=== PATIENT | male | born 1970 | race Caucasian/White ===

== ENCOUNTER 2021-02-13 10:33 | Outpatient (REF) | payer OTHER, SELFPAY ==
[2021-02-13 12:06] LABS: Hemoglobin 9.4 g/dl (14.0-18.0)
[2021-02-13 12:08] LABS: Basophils Percent Auto 0.6 % (0-2); Eosinophils Absolute Auto 0.2 X10*3/uL (0.0-0.4); Eosinophils Percent Auto 2.6 % (0-4); Hematocrit 33.9 % (42-52); Imm Gran Abs Auto 0.03 X10*3/uL (0.00-0.03); Imm Gran Pct Auto 0.4 % (0.0-0.4); Lymphocytes Absolute Auto 1.6 X10*3/uL (1.2-4.9); Lymphocytes Percent Auto 21.7 % (20-40); Mean Corpuscular HGB Conc 27.7 g/dl (31.0-36.0); Mean Corpuscular Hemoglobin 18.6 pg (27.0-33.0); Mean Corpuscular Volume 67.1 fL (80-98); Mean Platelet Volume 10.9 fL (9.4-12.4); Monocytes Absolute Auto 0.7 X10*3/uL (0.1-1.2); Monocytes Percent Auto 9.6 % (2-11); Neutrophils Absolute Auto 4.7 X10*3/uL (2.0-8.3); Neutrophils Percent Auto 65.1 % (45-73); Platelet Count 308 X10*3/uL (160-400); Red Blood Count 5.05 X10*6/uL (4.60-5.80); Red Cell Distribution Width 19.6 % (11.0-16.0); White Blood Count 7.2 X10*3/uL (4.8-10.8)
[2021-02-13 12:37] LABS: Alanine Aminotransferase 13 U/L (0-40); Albumin Level 4.2 g/dL (3.5-5.0); Alkaline Phosphatase 111 U/L (39-117); Aspartate Amino Transferase 16 U/L (5-37); Bilirubin Direct 0.3 mg/dL (0.0-0.5); Bilirubin Total 0.7 mg/dL (0.0-1.0); C Reactive Protein 0.59 mg/dL (< or = 0.50); Iron 22 mcg/dL (45-160); Percent Iron Saturation 5 % (15-50); Total Iron Binding Capacity 411 mcg/dL (228-428); Total Protein 7.2 g/dL (6.5-8.0); Unsaturated Iron Binding 389 ug/dL
[2021-02-13 13:09] LABS: Folate 5.6 ng/mL (> or = 4.0); Vitamin B12 274 pg/mL (200-900)
[2021-02-13 13:12] LABS: Erythrocyte Sedimentation Rate 10 MM/HR (0-15)
[2021-02-13 14:05] LABS: Ferritin < 1 ng/mL (20-250)
== END 2021-02-13 10:34 | disposition home or self-care (01) ==
LOC: HO.LAB 10:33
PROVIDERS: PCP Internal Medicine; Visit Provider Internal Medicine
DX: D50.9 Iron deficiency anemia, unspecified (principal); K50.019 Crohn's disease of small intestine with unspecified complications
CPT/HCPCS: 36415; 80076; 82607; 82728; 82746; 83540; 85025; 85652; 86140

== ENCOUNTER 2021-02-20 09:28 | Day surgery (SDC) | payer OTHER, SELFPAY ==
[2021-02-14 11:15] VITALS: BMI 39.0
[2021-02-20 10:09] VITALS: BP 119/63; PULSE 59; RESP 16; TEMP 36.8; O2SAT 97; BMI 39.2
[2021-02-20] MEDS: Lactated Ringers 1,000 ML 50 ML IV (10:12)
--- NOTE | 2021-02-20 10:26 | HO.ANESPROP2 ---
[facility] Past Medical History Medical History (Updated 02/14/21 @ 11:08 by Ayala Jacobs) Hx of Crohn's disease Surgical History Surgical History (Updated 02/14/21 @ 11:11 by Ayala Jacobs) H/O colonoscopy History of esophagogastroduodenoscopy (EGD) Hx of resection of small bowel Social History Social History Smoking Status: Never smoker Advance Directives Information Provided: No Meds Allergies Allergy/AdvReac Type Severity Reaction Status Date / Time Penicillins Allergy Severe ANAPHYLAXIS Verified 02/14/21 11:17 Active Medications: Current Medications Generic Name Dose Route Start Last Admin Trade Name Freq PRN Reason Stop Dose Admin Lactated Ringer's 1,000 mls @ 50 mls/hr 02/20/21 07:30 02/20/21 10:12 Lr IV 50 mls/hr .Q20H [place] Administration Sodium Biphosphate/Sodium Phosphate 133 ml 02/20/21 06:05 Sodium Phosphate,[place]-Dibasic 133 Ml Enema OR ONCE PRN Poor Colonoscopy Prep Results Home Medications Medication Instructions Recorded Confirmed Last Taken Type No Known Home Meds 02/14/21 02/14/21 Unknown History Exam Exam Date and Time: February 20, 2021 1026 Height,Weight and Vital Signs: Height 5 ft 7.5 in Weight 115.212 kg Last Vital Signs Temp 98.3 F 02/20/21 10:09 Pulse 59 02/20/21 10:09 Resp 16 02/20/21 10:09 BP 119/63 02/20/21 10:09 Pulse Ox 97 02/20/21 10:09 Airway Mallampati Class: II (Missing couple) TM Dist: >3cm Neck ROM: Full Heart: RrR Lungs: CTA BL Assessment and Plan Assessment Anesthesia Assessment: Anesthesia Plan Discussed and Chart Reviewed Final Anesthetic Review NPO: Yes ASA Class: II Final Preanesthetic Review: No Changes in Pt Med Stat and Consent Obtained/Reviewed Patient Risk: Intermediate Procedure Risk: Intermediate Anesthetic Plan Anesthetic Plan: MAC: Disposition: Standard PACU
[2021-02-20 12:22] VITALS: BP 123/60; PULSE 69; RESP 16; TEMP 37.1
--- NOTE | 2021-02-20 12:36 | PM.OP ---
Brief Operative Note Date of Service: 02/20/21 Pre-op diagnosis: Crohn's disease, anemia Post-op diagnosis: other (Active Crohn's at Ileocolic anastomosis and small bowel, small hiatal hernia, gastritis, gastric polyp) Procedure: EGD with biopsies, Colonoscopy to ileocolic anastomosis and distal small bowel Surgeon: Lamont Mendes Anesthesia: MAC Estimated blood loss (mL): 4.0 Pathology: other (A. Descending duodenum B. Gastric antrum C. EG Junction at 38cm D. Gastric polyp) Condition: stable Disposition: PACU
[2021-02-20 12:37] VITALS: BP 114/54; PULSE 67; RESP 17; TEMP 37.1; O2SAT 97
[2021-02-20 12:52] VITALS: BP 117/73; PULSE 60; RESP 16; O2SAT 98
--- NOTE | 2021-02-20 13:12 | OP_ITS ---
SURGEON: Lamont Mendes MD INDICATIONS: The patient presents for evaluation of underlying history of Crohn disease and iron-deficiency anemia. Full consent has been obtained from him for this, including risks of bleeding and perforation. PREOPERATIVE DIAGNOSIS: POSTOPERATIVE DIAGNOSIS: PROCEDURE PERFORMED: Esophagogastroduodenoscopy with biopsies, and colonoscopy to the ileocolic anastomosis and ileum. ESTIMATED BLOOD LOSS: COMPLICATIONS: ANESTHESIA: Monitored anesthesia care. ASSISTANTS: SPECIMENS: PREOPERATIVE DIAGNOSES: Iron-deficiency anemia and history of Crohn disease. POSTOPERATIVE DIAGNOSES: Iron-deficiency anemia and history of Crohn disease, hiatal hernia, gastroesophageal reflux, mild gastritis, rule out celiac disease, active Crohn disease of ileum and anastomosis, internal hemorrhoids. DESCRIPTION OF PROCEDURE: The patient was placed in the left lateral decubitus position. The Olympus video gastroscope was passed in the posterior oropharynx and upper esophagus under direct vision. The scope was passed slowly into the distal esophagus. The gastroesophageal junction appeared at 38 cm. There was some slight irregularity consistent with reflux, but no evidence of any esophagitis nor Hollingsworth's mucosa. There was a small hiatal hernia. The scope was advanced to pylorus and the duodenum was cannulated to the descending portion. The duodenum including the bulb appeared normal without mass or ulceration. Biopsies were obtained from the 2nd and 3rd portions of duodenum. The scope was withdrawn back into the stomach. The gastric antrum had some mild areas of erythema, but no erosions or ulceration. There was good peristalsis. The scope was retroflexed visualizing the proximal stomach carefully, which appeared normal, without any sign of mass or ulceration. Scope was straightened. Biopsies were obtained from the gastric antrum. In the body of the stomach, was a single approximately 4 mm polyp, which was biopsied and completely removed with cold biopsy forceps. The EG junction at 38 cm was somewhat irregular and biopsies were obtained there as well. Proximal to this, esophageal mucosa appeared normal. The scope was withdrawn from the patient. He was turned around for colonoscopy. The digital rectal exam revealed no abnormalities. The Olympus video pediatric colonoscope was entered into the rectum and advanced easily to the level of the anastomosis. The anastomosis was patent, but had active ulcerations consistent with his Crohn disease. I was able to cannulate the small bowel for at least 10 cm visualizing other ulcerations as well. The scope was withdrawn back in the colon. The scope was then slowly withdrawn assessing all mucosal surfaces carefully. Preparation was limited in various parts of the colon due to some semi-solid residual material. Most of this could not really be suctioned nor irrigated away. Portions of the colon I did see were normal without any sign of colitis nor polyps. In the rectum, scope was retroflexed visualizing internal hemorrhoids, but no other pathology. The rectal mucosa appeared normal. Scope was straightened and withdrawn from the patient. He tolerated the procedure well and was returned to the recovery area in stable condition. IMPRESSION: 1. Active Crohn disease involving distal small bowel and the ileocolic anastomosis. 2. Small hiatal hernia, gastroesophageal reflux. 3. Mild gastritis. 4. Gastric polyp. 5. Rule out celiac disease. PLAN: The results of the biopsy will be checked. His most recent laboratories continued to show a significant iron deficiency with anemia. His B12 and folic acid level were normal. He has been advised to begin iron supplements twice a day. He is currently not using any medication for his Crohn disease and I shall start him on budesonide 9 mg daily as well as a mesalamine product depending what his insurance will cover. Given these findings and his history, we may want to start him on a biologic agent such as Humira. This has been discussed with his . MD NILES Rios/ANALI / [phone]
== END 2021-02-20 13:18 | disposition home or self-care (01) ==
PROVIDERS: PCP Internal Medicine; Visit Provider Internal Medicine
PROC: (CPT 45378; principal; 2021-02-20 10:30)
DX: K50.818 Crohn's disease of both small and large intestine with other complication (principal); D50.9 Iron deficiency anemia, unspecified; K21.9 Gastro-esophageal reflux disease without esophagitis; K31.7 Polyp of stomach and duodenum; K44.9 Diaphragmatic hernia without obstruction or gangrene; Z90.49 Acquired absence of other specified parts of digestive tract
CPT/HCPCS: 45378; 43239; 88305; 88342; J3010

== ENCOUNTER 2021-04-17 14:19 | Outpatient (REF) | payer OTHER, SELFPAY ==
[2021-04-17 14:52] LABS: MANUAL DIFF FLAG NO
[2021-04-17 15:01] LABS: Basophils Percent Auto 0.4 % (0-2); Eosinophils Absolute Auto 0.2 X10*3/uL (0.0-0.4); Eosinophils Percent Auto 2.5 % (0-4); Hematocrit 31.6 % (42-52); Hemoglobin 8.9 g/dl (14.0-18.0); Imm Gran Abs Auto 0.04 X10*3/uL (0.00-0.03); Imm Gran Pct Auto 0.5 % (0.0-0.4); Lymphocytes Absolute Auto 1.7 X10*3/uL (1.2-4.9); Lymphocytes Percent Auto 20.9 % (20-40); Mean Corpuscular HGB Conc 28.2 g/dl (31.0-36.0); Mean Corpuscular Hemoglobin 18.8 pg (27.0-33.0); Mean Corpuscular Volume 66.8 fL (80-98); Mean Platelet Volume 10.3 fL (9.4-12.4); Monocytes Absolute Auto 0.8 X10*3/uL (0.1-1.2); Monocytes Percent Auto 9.1 % (2-11); Neutrophils Absolute Auto 5.5 X10*3/uL (2.0-8.3); Neutrophils Percent Auto 66.6 % (45-73); Platelet Count 312 X10*3/uL (160-400); Red Blood Count 4.73 X10*6/uL (4.60-5.80); Red Cell Distribution Width 20.1 % (11.0-16.0); White Blood Count 8.3 X10*3/uL (4.8-10.8)
[2021-04-17 15:17] LABS: C Reactive Protein 0.67 mg/dL (< or = 0.50); Iron 17 mcg/dL (45-160); Percent Iron Saturation 4 % (15-50); Total Iron Binding Capacity 412 mcg/dL (228-428); Unsaturated Iron Binding 395 ug/dL
[2021-04-17 15:45] LABS: Ferritin < 1 ng/mL (20-250)
[2021-04-17 16:13] LABS: Erythrocyte Sedimentation Rate 12 MM/HR (0-15)
== END 2021-04-17 14:20 | disposition home or self-care (01) ==
LOC: HO.LAB 14:19
PROVIDERS: PCP Internal Medicine; Visit Provider Internal Medicine
DX: K50.019 Crohn's disease of small intestine with unspecified complications (principal); D50.9 Iron deficiency anemia, unspecified
CPT/HCPCS: 36415; 82728; 83540; 85025; 85652; 86140

== ENCOUNTER 2021-07-03 07:57 | Outpatient (REF) | payer OTHER, SELFPAY | END 2021-07-03 07:58 | disposition home or self-care (01) | LOC: HO.MDS 07:57 | PROVIDERS: PCP Internal Medicine; Visit Provider Internal Medicine | DX: D50.9 Iron deficiency anemia, unspecified (principal) | CPT/HCPCS: 96365; 96366; J1200; J1750; Q0163 ==

== ENCOUNTER 2021-09-11 14:22 | Outpatient (REF) | payer OTHER, SELFPAY ==
[2021-09-11 16:28] LABS: MANUAL DIFF FLAG NO
[2021-09-11 16:36] LABS: Basophils Percent Auto 0.4 % (0-2); Eosinophils Absolute Auto 0.2 X10*3/uL (0.0-0.4); Eosinophils Percent Auto 1.8 % (0-4); Hematocrit 46.3 % (42-52); Hemoglobin 14.7 g/dl (14.0-18.0); Imm Gran Abs Auto 0.03 X10*3/uL (0.00-0.03); Imm Gran Pct Auto 0.4 % (0.0-0.4); Lymphocytes Absolute Auto 1.7 X10*3/uL (1.2-4.9); Lymphocytes Percent Auto 19.7 % (20-40); Mean Corpuscular HGB Conc 31.7 g/dl (31.0-36.0); Mean Corpuscular Hemoglobin 26.9 pg (27.0-33.0); Mean Corpuscular Volume 84.8 fL (80-98); Mean Platelet Volume 10.9 fL (9.4-12.4); Monocytes Absolute Auto 0.7 X10*3/uL (0.1-1.2); Monocytes Percent Auto 8.1 % (2-11); Neutrophils Absolute Auto 5.8 X10*3/uL (2.0-8.3); Neutrophils Percent Auto 69.6 % (45-73); Platelet Count 265 X10*3/uL (160-400); Red Blood Count 5.46 X10*6/uL (4.60-5.80); Red Cell Distribution Width 23.4 % (11.0-16.0); White Blood Count 8.4 X10*3/uL (4.8-10.8)
[2021-09-11 16:42] LABS: Iron 43 mcg/dL (45-160); Percent Iron Saturation 13 % (15-50); Total Iron Binding Capacity 344 mcg/dL (228-428); Unsaturated Iron Binding 301 ug/dL
[2021-09-11 17:04] LABS: Ferritin 51 ng/mL (20-250)
== END 2021-09-11 14:23 | disposition home or self-care (01) ==
LOC: HO.LAB 14:22
PROVIDERS: Visit Provider Internal Medicine
DX: D50.0 Iron deficiency anemia secondary to blood loss (chronic) (principal)
CPT/HCPCS: 36415; 82728; 83540; 85025

== ENCOUNTER 2021-09-13 14:27 | Emergency (ER) | payer OTHER, SELFPAY ==
--- NOTE | ~2021-09-13 | XR_ITS ---
EXAMINATION: XR ANKLE, RIGHT XR FOOT, RIGHT CLINICAL INFORMATION: Pain. Patient reports pain that radiates up the leg. COMPARISON: None TECHNIQUE: Right ankle, AP and oblique views (2 views) Right foot, PA, oblique and lateral views (3 views) FINDINGS: Right ankle: The talar dome is well-positioned within the intact ankle mortise. Ankle joint space and syndesmotic space are normal. There is no arthritic deformity at the ankle. The distal tibia and fibula have normal shape. No fracture or periostitis. A very small ossicle projects distal to the medial malleolus. No acute fracture in this area. Right foot: Bones have normal alignment throughout the foot. The joint spaces are well-preserved. There is no evidence of lytic bone lesion, erosion or periostitis. No fracture, subluxation or soft tissue swelling. No radiopaque foreign body. XR/XR foot RT min 3V IMPRESSION: No significant findings in the right ankle or foot. No lytic bone lesions or fractures. The soft tissues are grossly normal.
--- NOTE | ~2021-09-13 | XR_ITS ---
EXAMINATION: XR ANKLE, RIGHT XR FOOT, RIGHT CLINICAL INFORMATION: Pain. Patient reports pain that radiates up the leg. COMPARISON: None TECHNIQUE: Right ankle, AP and oblique views (2 views) Right foot, PA, oblique and lateral views (3 views) FINDINGS: Right ankle: The talar dome is well-positioned within the intact ankle mortise. Ankle joint space and syndesmotic space are normal. There is no arthritic deformity at the ankle. The distal tibia and fibula have normal shape. No fracture or periostitis. A very small ossicle projects distal to the medial malleolus. No acute fracture in this area. Right foot: Bones have normal alignment throughout the foot. The joint spaces are well-preserved. There is no evidence of lytic bone lesion, erosion or periostitis. No fracture, subluxation or soft tissue swelling. No radiopaque foreign body. XR/XR ankle RT 2V IMPRESSION: No significant findings in the right ankle or foot. No lytic bone lesions or fractures. The soft tissues are grossly normal.
[2021-09-13 14:53] VITALS: BP 109/73; PULSE 72; RESP 18; TEMP 36.7; O2SAT 98; BMI 38.7
[2021-09-13 15:47] VITALS: BP 115/71; PULSE 66; RESP 20; TEMP 36.9; O2SAT 97
--- NOTE | 2021-09-13 16:34 | ED.LOWEXIN ---
HPI - Extremity Injury (Lower) General Chief Complaint: Extremity Injury, Lower Stated Complaint: R ANKLE INJ Time Seen by Provider: 09/13/21 16:13 Source: patient Mode of arrival: ambulatory Limitations: no limitations History of Present Illness HPI Narrative: 51-year-old male reports that he was simply walking at work when he felt a weird sharp pain to his right foot/great toe that went up to the right ankle and since then he has been having intermittent pain. He reports it occurred for a 2nd time when he was walking on the steps. He reports is not a work-related injury. He denies any calf pain or any lower extremity swelling. Denies any other symptoms complaints or concerns at this time. MD complaint: ankle injury and foot injury Onset (ago): minute(s) (Prior to arrival) Injury: Right: ankle and foot Type of Injury: unknown Place: work Severity: mild Relieving factors: nothing Exacerbating factors: weight bearing, movement and palpation Context: walking Associated symptoms: snap/pop sensation, swelling and ambulatory Other symptoms: none Related Data Home Medications Medication Instructions Recorded Confirmed mesalamine 500 mg 2 cap PO QID 06/05/21 06/05/21 capsule,controlled release (Pentasa) Previous Rx's Medication Instructions Recorded acetaminophen 500 mg tablet 1,000 mg PO QID PRN #14 tab 09/13/21 (Tylenol Extra Strength) cyclobenzaprine 10 mg tablet 10 mg PO Q8H PRN #14 tab 09/13/21 ibuprofen 800 mg tablet 800 mg PO Q8H PRN #14 tab 09/13/21 lidocaine HCl 4 % topical cream 1 appl TOPICAL BID PRN #120 g 09/13/21 (Aspercreme (lidocaine HCl)) Allergies Allergy/AdvReac Type Severity Reaction Status Date / Time Penicillins Allergy Severe ANAPHYLAXIS Verified 09/13/21 14:52 Review of Systems Review of Systems: Constitutional : No Weight loss, No Fever, No Chills, No Night Sweats, No Fatigue, No Malaise ENT/Mouth : No Hearing loss, No Ear Pain, No Nasal Congestion, No Sinus Pain, No Hoarseness, No sore throat, No Rhinorrhea, No Swallowing Difficulty Eyes: No Eye Pain, No Swelling, No Redness, No Foreign Body, No Discharge, No Vision Changes Cardiovascular : No Chest Pain, No SOB, No Dyspnea on Exertion, No Orthopnea, No Edema, No Palpitations Respiratory : No Cough, No Sputum, No Wheezing, No Smoke Exposure, No Dyspnea Gastrointestinal : No Nausea, No Vomiting, No Diarrhea, No Constipation, No abdominal Pain, No Hematochezia, No Melena Genitourinary : no irregular bleeding, No Dysuria, No Urinary Frequency, No Hematuria, No Urinary Incontinence, No Urgency, No Flank Pain, No Urinary Flow Changes, No Hesitancy Musculoskeletal : + joint pain, No Myalgias, No Joint Swelling Skin : No Skin Lesions, No rash Neuro : No Weakness, No Numbness, No Paresthesias, No Loss of Consciousness, No Dizziness, No Headache Psych : No Anxiety/Panic, No Depression, No SI/HI/AH/VH, No Social Issues, Heme/Lymph: No Bruising, No Bleeding,No Lymphadenopathy Endocrine : No Polyuria, No Polydipsia, No Temperature Intolerance Yes all other systems are reviewed and are negative FORMERLY [facility], [facility]1983 Past Medical History Attestation statement: The following information was validated with the patient. Medical History Hx of Crohn's disease Surgical History H/O colonoscopy History of esophagogastroduodenoscopy (EGD) Hx of resection of small bowel Family History Family History Father Abdominal malignancy Paternal Uncle Stroke Paternal Grandmother Stroke Social History Social History Alcohol intake: current Alcohol intake frequency: holidays/special occasions only Patient Tobacco Use Status: Former Tobacco user Quit Date: 1989 Cigarette Packs Per Day: 0.5 Advance Directives: No Advance Directives Information Provided: No Physical Exam Vital Signs: Vital Signs: Last Vital Signs Temp 98.4 F 09/13/21 15:47 Pulse 66 09/13/21 15:47 Resp 20 09/13/21 15:47 BP 115/71 09/13/21 15:47 Pulse Ox 97 09/13/21 15:47 Body Mass Index 38.7 vital signs have been reviewed as normal and appeared to be correct. Blood pressure normal Heart rate normal. Respiration rate normal. Temperature normal. Oxygen saturation normal. Appearance: Alert. Oriented X3. No acute distress. Head: Normal external exam. Normocephalic. Atraumatic. Eyes: PERRLA. EOMI. Conjunctiva and sclera normal. Eyelids normal. ENT: Pharynx normal. Uvula midline. Moist mucous membranes. Neck: Normal inspection. Neck supple. FROM. CVS: Normal heart rate and rhythm. Respiratory: No respiratory distress. Painless inspiration. Skin: Skin warm and dry. Normal skin color. Normal skin turgor. No rashes/lesions/lacerations noted. Extremities: Patient with tenderness palpation to right foot at the great toe and at the right ankle lateral and medial aspect with mild soft tissue swelling. No obvious deformities noted. No obvious ligamentous or tendon injury. Achilles tendon is intact. No lower extremity edema or calf tenderness is noted. No signs of infection noted. Otherwise all other Extremities exhibit normal range of motion and nontender. Neuro: Oriented X 3. No motor deficit. No sensory deficit. Reflexes normal. Normal steady gait. No focal neuro deficits noted. Vascular: + radial pulses/+ 2 distal pedal pulses/+2 dorsalis pedis b/l. Normal cap refill. No cyanosis noted to upper extremity nails and lower extremity toes nails. Course Course Course Narrative: 51-year-old male presenting to the ED with complaints of right ankle pain that occurred while ambulation. On exam patient has full range of motion no signs of infection not consistent with Achilles tendon rupture or tendon or ligament injury. X-ray negative for any acute processes. Will place in an Deandre wrap and treat symptomatic knee along with instructions return if any new or worsening symptoms to follow up with primary care provider. Patient understands agrees to this plan. MDM - Extremity Injury (Lower) Medical Records Attestation: I reviewed the patient's medical records. Imaging Data Right ankle/foot x-ray: Attestation: I personally reviewed and interpreted this imaging study as follows: Radiologist's impression: FINDINGS: Right ankle: The talar dome is well-positioned within the intact ankle mortise. Ankle joint space and syndesmotic space are normal. There is no arthritic deformity at the ankle. The distal tibia and fibula have normal shape. No fracture or periostitis. A very small ossicle projects distal to the medial malleolus. No acute fracture in this area. Right foot: Bones have normal alignment throughout the foot. The joint spaces are well-preserved. There is no evidence of lytic bone lesion, erosion or periostitis. No fracture, subluxation or soft tissue swelling. No radiopaque foreign body. XR/XR ankle RT 2V IMPRESSION: No significant findings in the right ankle or foot. No lytic bone lesions or fractures. The soft tissues are grossly normal.? Procedures Orthopedic Splinting/Casting Injury #1: Side: right Upper Extremity Immobilizer: Deandre wrap Lower Extremity Injury Location: ankle and foot Discharge Plan Discharge Clinical Impression: Right foot sprain, Right ankle sprain Patient Disposition: Home, Self-Care Instructions: Ankle Sprain (ED), How to Use an Elastic Bandage (ED), Foot Sprain (ED) Prescriptions: New lidocaine HCl [Aspercreme (lidocaine HCl)] 4 % cream 1 appl topical BID PRN (Reason: pain) Qty: 120 RF: 0 cyclobenzaprine 10 mg tablet 10 mg PO Q8H PRN (Reason: Muscle spasm) Qty: 14 RF: 0 ibuprofen 800 mg tablet 800 mg PO Q8H PRN (Reason: pain) Qty: 14 RF: 0 acetaminophen [Tylenol Extra Strength] 500 mg tablet 1,000 mg PO QID PRN (Reason: fever or pain) Qty: 14 RF: 0 No Action Pentasa 500 mg capsule, extended release 2 cap PO QID RF: 0 Referrals: Rebekah Tapia MD [Primary Care Provider] - 2 days Stand Alone Forms: Work/School Release Print Language: [place]
== END 2021-09-13 16:55 | disposition home or self-care (01) ==
PROVIDERS: Emergency Provider Emergency Medicine; PCP Internal Medicine
DX: S93.401A Sprain of unspecified ligament of right ankle, initial encounter (principal); S93.601A Unspecified sprain of right foot, initial encounter; X58.XXXA Exposure to other specified factors, initial encounter; Y93.01 Activity, walking, marching and hiking; Y92.89 Other specified places as the place of occurrence of the external cause; Y99.0 Civilian activity done for income or pay
CPT/HCPCS: 73600; 73630; 99283; 99284

== ENCOUNTER 2022-08-13 19:50 | Emergency (ER) | payer OTHER, SELFPAY ==
--- NOTE | ~2022-08-13 | XR_ITS ---
EXAMINATION: XR tibia fibula RT 2V, XR tibia fibula LT 2V CLINICAL INFORMATION: Reason for Exam trauma COMPARISON: None. TECHNIQUE: AP and lateral views tibia and fibula bilaterally FINDINGS: Right tibia and fibula: No acute fracture or dislocation. No osseous lesion. Small os trigonum noted. Left tibia and fibula: No fracture or dislocation. No osseous lesion. XR/XR tibia fibula RT 2V IMPRESSION: 1. No fracture or dislocation identified.
--- NOTE | ~2022-08-13 | CT_ITS ---
EXAMINATION: CT CERVICAL SPINE WITHOUT CONTRAST CLINICAL INFORMATION: Trauma COMPARISON: None. TECHNIQUE: Contiguous helical images of the cervical spine were obtained without IV contrast. Multiplanar reconstructions were performed. This CT examination was performed using dose optimization techniques as appropriate, variously including the following: *Automated exposure control *Adjustment of mA and/or kV according to patient size (this includes techniques or standardized protocols for targeted exams where dose is matched to indication/reason for exam; i.e. extremities or head) *Use of iterative reconstruction technique DLP: 566 mGy-cm FINDINGS: There is anatomic alignment of the vertebral bodies and posterior elements. The atlantoaxial and atlantooccipital articulations are intact. Vertebral body heights and intervertebral disc spaces are maintained. Small endplate osteophytes are seen throughout the cervical spine. No evidence of acute fracture. No prevertebral soft tissue swelling. There is no cervical lymphadenopathy. The visualized thyroid gland is unremarkable. The visualized base of the brain is unremarkable. The visualized lung apices are clear. CT/CT cervical spine wo IV con IMPRESSION: No evidence for acute injury to the cervical spine.
--- NOTE | ~2022-08-13 | XR_ITS ---
EXAMINATION: XR tibia fibula RT 2V, XR tibia fibula LT 2V CLINICAL INFORMATION: Reason for Exam trauma COMPARISON: None. TECHNIQUE: AP and lateral views tibia and fibula bilaterally FINDINGS: Right tibia and fibula: No acute fracture or dislocation. No osseous lesion. Small os trigonum noted. Left tibia and fibula: No fracture or dislocation. No osseous lesion. XR/XR tibia fibula LT 2V IMPRESSION: 1. No fracture or dislocation identified.
[2022-08-13 20:03] VITALS: BP 132/88; PULSE 90; O2SAT 96; BMI 28.7
[2022-08-13 20:11] VITALS: BP 151/79; PULSE 80; RESP 18; O2SAT 92
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
[2022-08-13 21:48] VITALS: BP 136/84; PULSE 89; RESP 18; O2SAT 98
== END 2022-08-13 21:49 | disposition home or self-care (01) ==
PROVIDERS: Emergency Provider Emergency Medicine; PCP Internal Medicine
DX: S13.4XXA Sprain of ligaments of cervical spine, initial encounter (principal); S80.12XA Contusion of left lower leg, initial encounter; S80.11XA Contusion of right lower leg, initial encounter; V43.52XA Car driver injured in collision with other type car in traffic accident, initial encounter; Y93.89 Activity, other specified; Y92.414 Local residential or business street as the place of occurrence of the external cause; Y99.9 Unspecified external cause status
CPT/HCPCS: 72125; 73590; 99284

== ENCOUNTER 2022-11-30 17:00 | Emergency (ER) | payer OTHER, SELFPAY ==
[2022-11-30 17:08] VITALS: BP 140/80; PULSE 80; RESP 20; TEMP 36.6; O2SAT 96; BMI 40.3
[2022-11-30 17:25] VITALS: BP 138/74; PULSE 78
[2022-11-30 17:27] VITALS: BP 129/75; BP 133/84; PULSE 87; PULSE 89
[2022-11-30 19:09] VITALS: BP 126/77; PULSE 71; RESP 17; O2SAT 96
--- NOTE | 2022-11-30 20:54 | PC.NURSE ---
Pt has been in his room for over 2 hours without a provider and the pt became upset. Pt demanded to talk to a hospital [employer] systems administrator and then left with out being seen by a provider.
== END 2022-11-30 21:01 | disposition left against medical advice (07) ==
PROVIDERS: Emergency Provider Emergency Medicine; PCP Internal Medicine
DX: R42 Dizziness and giddiness (principal)
CPT/HCPCS: 99283; 99284

== ENCOUNTER 2023-08-13 12:19 | Outpatient (REF) | payer OTHER, SELFPAY ==
[2023-08-13 12:36] LABS: MANUAL DIFF FLAG NO
[2023-08-13 12:56] LABS: Basophils Percent Auto 0.5 % (0-2); Eosinophils Absolute Auto 0.3 X10*3/uL (0.0-0.4); Hematocrit 43.6 % (42.0-52.0); Hemoglobin 13.9 g/dl (14.0-18.0); Imm Gran Abs Auto 0.04 X10*3/uL (0.00-0.03); Imm Gran Pct Auto 0.5 % (0.0-0.4); Lymphocytes Absolute Auto 1.8 X10*3/uL (1.2-4.9); Lymphocytes Percent Auto 21.1 % (20-40); Mean Corpuscular HGB Conc 31.9 g/dl (31.0-36.0); Mean Corpuscular Hemoglobin 26.6 pg (27.0-33.0); Mean Corpuscular Volume 83.4 fL (80.0-98.0); Mean Platelet Volume 11.3 fL (9.4-12.4); Monocytes Absolute Auto 0.8 X10*3/uL (0.1-1.2); Monocytes Percent Auto 8.9 % (2-11); Neutrophils Absolute Auto 5.6 x10*3/uL (2.0-8.3); Platelet Count 265 X10*3/uL (160-400); Red Blood Count 5.23 X10*6/uL (4.60-5.80); Red Cell Distribution Width 14.8 % (11.0-16.0); White Blood Count 8.5 X10*3/uL (4.8-10.8)
[2023-08-13 14:18] LABS: Alanine Aminotransferase 24 U/L (0-40); Albumin Level 3.9 g/dL (3.5-5.0); Alkaline Phosphatase 106 U/L (39-117); Aspartate Amino Transferase 19 U/L (5-37); Bilirubin Direct 0.2 mg/dL (0.0-0.5); Bilirubin Total 0.6 mg/dL (0.0-1.0); Ferritin 19 ng/mL (20-250); Iron 39 mcg/dL (45-160); Percent Iron Saturation 11 % (15-50); Total Iron Binding Capacity 345 mcg/dL (228-428); Total Protein 7.6 g/dL (6.5-8.0); Unsaturated Iron Binding 306 ug/dL
[2023-08-13 14:39] LABS: Folate 7.6 ng/mL (> or = 4.0); Vitamin B12 398 pg/mL (200-900)
== END 2023-08-13 12:20 | disposition home or self-care (01) ==
LOC: HO.LAB 12:19
PROVIDERS: PCP Internal Medicine; Visit Provider Internal Medicine
DX: K50.019 Crohn's disease of small intestine with unspecified complications (principal); D50.9 Iron deficiency anemia, unspecified
CPT/HCPCS: 36415; 80076; 82607; 82728; 82746; 83540; 85025

== ENCOUNTER 2024-03-27 13:24 | Outpatient (REF) | payer OTHER, SELFPAY ==
[2024-03-27 13:38] LABS: MANUAL DIFF FLAG NO
[2024-03-27 14:52] LABS: Basophils Percent Auto 0.4 % (0-2); Eosinophils Absolute Auto 0.2 X10*3/uL (0.0-0.4); Eosinophils Percent Auto 2.2 % (0-4); Hematocrit 40.9 % (42.0-52.0); Hemoglobin 12.6 g/dl (14.0-18.0); Imm Gran Abs Auto 0.03 X10*3/uL (0.00-0.03); Imm Gran Pct Auto 0.4 % (0.0-0.4); Lymphocytes Absolute Auto 1.9 X10*3/uL (1.2-4.9); Lymphocytes Percent Auto 23.4 % (20-40); Mean Corpuscular HGB Conc 30.8 g/dl (31.0-36.0); Mean Corpuscular Hemoglobin 23.2 pg (27.0-33.0); Mean Corpuscular Volume 75.3 fL (80.0-98.0); Mean Platelet Volume 10.6 fL (9.4-12.4); Monocytes Absolute Auto 0.7 X10*3/uL (0.1-1.2); Monocytes Percent Auto 8.7 % (2-11); Neutrophils Absolute Auto 5.2 x10*3/uL (2.0-8.3); Neutrophils Percent Auto 64.9 % (45-73); Platelet Count 274 X10*3/uL (160-400); Red Blood Count 5.43 X10*6/uL (4.60-5.80); Red Cell Distribution Width 17.9 % (11.0-16.0)
[2024-03-27 15:00] LABS: Estimated Average Glucose 197 mg/dL; Hemoglobin A1c % 8.5 % (<6.0)
[2024-03-27 15:50] LABS: Alanine Aminotransferase 29 U/L (0-40); Albumin Level 3.9 g/dL (3.5-5.0); Alkaline Phosphatase 136 U/L (39-117); Anion Gap 14 (12-20); Aspartate Amino Transferase 30 U/L (5-37); Bilirubin Total 0.5 mg/dL (0.0-1.0); Blood Urea Nitrogen 16 mg/dL (9-16); Calcium 9.1 mg/dL (8.4-10.2); Carbon Dioxide 22 mmol/L (22-29); Chloride 105 mmol/L (96-108); Cholesterol 156 mg/dL (<200); Estimated Glomerular Filt Rate > 60; Glucose Random 182 mg/dL (60-115); HDL Cholesterol 30 mg/dL (>40); LDL Cholesterol Calculated 61 mg/dL (<100); Potassium 3.7 mmol/L (3.3-5.1); Sodium 137 mmol/L (135-145); Total Protein 7.6 g/dL (6.5-8.0); Triglycerides 327 mg/dL (<150)
[2024-03-27 16:05] LABS: Ferritin 20 ng/mL (20-250); Thyroid Stimulating Hormone 4.16 uIU/mL (0.32-4.0)
[2024-03-27 16:07] LABS: Prostate Specific Antigen 0.99 ng/mL (<0.05-4.0)
[2024-04-03 16:37] LABS: Testosterone, Total 350 ng/dL (250-1100)
== END 2024-03-27 13:25 | disposition home or self-care (01) ==
LOC: HO.LAB 13:24
PROVIDERS: PCP Internal Medicine; Visit Provider Internal Medicine
DX: Z00.01 Encounter for general adult medical examination with abnormal findings (principal); D50.9 Iron deficiency anemia, unspecified; E66.01 Morbid (severe) obesity due to excess calories; K50.90 Crohn's disease, unspecified, without complications; N40.0 Benign prostatic hyperplasia without lower urinary tract symptoms; Z12.5 Encounter for screening for malignant neoplasm of prostate
CPT/HCPCS: 36415; 80053; 80061; 82728; 83036; 84153; 84403; 84443; 85025

== ENCOUNTER 2024-04-03 14:04 | Outpatient (REF) | payer OTHER, SELFPAY ==
--- NOTE | ~2024-04-03 | XR_ITS ---
EXAMINATION: XR ABDOMEN COMPLETE CLINICAL INDICATION: Acute diarrhea, Crohn's disease. COMPARISON: GI series of 03/07/2018. TECHNIQUE: 4 views of the abdomen. FINDINGS: Dextroscoliosis with multilevel degenerative changes in the images thoracolumbar spine. Surgical sutures in the right lower quadrant. Multiple air-fluid levels grouped in the right [id number] abdomen. Prominent, focal dilated loop of small bowel in the left upper quadrant. There is a small amount of gas scattered in the colon. Stool overlies the rectal region. Moderate amount of stool in the colon. XR/XR abdomen min 2V IMPRESSION: Multiple air-fluid levels grouped in the right [id number] abdomen. Prominent, focal dilated loop of small bowel in the left upper quadrant. There is a small amount of gas scattered in the colon. This study was presented today 04/08/2024 for interpretation. STAT results provided at this time as requested by referring provider.
[2024-04-03 14:18] LABS: MANUAL DIFF FLAG NO
[2024-04-03 14:53] LABS: Basophils Absolute Auto 0.1 X10*3/uL (0.0-0.2); Basophils Percent Auto 0.5 % (0-2); Eosinophils Absolute Auto 0.2 X10*3/uL (0.0-0.4); Eosinophils Percent Auto 2.3 % (0-4); Hematocrit 42.3 % (42.0-52.0); Hemoglobin 13.3 g/dl (14.0-18.0); Imm Gran Abs Auto 0.03 X10*3/uL (0.00-0.03); Imm Gran Pct Auto 0.3 % (0.0-0.4); Lymphocytes Absolute Auto 2.3 X10*3/uL (1.2-4.9); Lymphocytes Percent Auto 23.3 % (20-40); Mean Corpuscular HGB Conc 31.4 g/dl (31.0-36.0); Mean Corpuscular Hemoglobin 23.5 pg (27.0-33.0); Mean Corpuscular Volume 74.6 fL (80.0-98.0); Mean Platelet Volume 10.6 fL (9.4-12.4); Monocytes Absolute Auto 0.8 X10*3/uL (0.1-1.2); Monocytes Percent Auto 8.5 % (2-11); Neutrophils Absolute Auto 6.3 x10*3/uL (2.0-8.3); Neutrophils Percent Auto 65.1 % (45-73); Platelet Count 332 X10*3/uL (160-400); Red Blood Count 5.67 X10*6/uL (4.60-5.80); Red Cell Distribution Width 18.5 % (11.0-16.0); White Blood Count 9.7 X10*3/uL (4.8-10.8)
[2024-04-03 15:33] LABS: Alanine Aminotransferase 35 U/L (0-40); Alkaline Phosphatase 134 U/L (39-117); Amylase 31 U/L (28-100); Anion Gap 15 (12-20); Aspartate Amino Transferase 36 U/L (5-37); Bilirubin Direct 0.3 mg/dL (0.0-0.5); Bilirubin Total 0.8 mg/dL (0.0-1.0); Blood Urea Nitrogen 17 mg/dL (9-16); Calcium 9.4 mg/dL (8.4-10.2); Carbon Dioxide 24 mmol/L (22-29); Chloride 103 mmol/L (96-108); Estimated Glomerular Filt Rate > 60; Glucose Random 153 mg/dL (60-115); Lipase 19 U/L (8-78); Potassium 3.6 mmol/L (3.3-5.1); Sodium 138 mmol/L (135-145); Total Protein 7.9 g/dL (6.5-8.0)
[2024-04-03 15:47] LABS: Erythrocyte Sedimentation Rate 16 MM/HR (0-15)
== END 2024-04-03 14:05 | disposition home or self-care (01) ==
LOC: HO.XRAY 14:04
PROVIDERS: PCP Internal Medicine; Visit Provider Internal Medicine
DX: R19.7 Diarrhea, unspecified (principal); K50.012 Crohn's disease of small intestine with intestinal obstruction; K50.018 Crohn's disease of small intestine with other complication
CPT/HCPCS: 36415; 74019; 80048; 80076; 82150; 83690; 85025; 85652; 86140

== ENCOUNTER 2024-04-03 22:00 | Outpatient (REF) | payer OTHER, SELFPAY ==
[2024-04-04 12:42] LABS: CDiff Gene PCR NEGATIVE (Negative)
[2024-04-04 14:46] LABS: Adenovirus F 40/41 Not Detected (Not Detect.); Astrovirus Not Detected (Not Detect.); Campylobacter Not Detected (Not Detect.); Cryptosporidium Not Detected (Not Detect.); Cyclospora cayetanensis Not Detected (Not Detect.); E. coli EAEC Not Detected (Not Detect.); E. coli EPEC Not Detected (Not Detect.); E. coli ETEC Not Detected (Not Detect.); E. coli STEC Not Detected (Not Detect.); Entamoeba histolytica Not Detected (Not Detect.); Giardia lamblia Not Detected (Not Detect.); Norovirus GI/GII Not Detected (Not Detect.); Plesiomonas shigelloides Not Detected (Not Detect.); Rotavirus A Not Detected (Not Detect.); Salmonella Not Detected (Not Detect.); Sapovirus Not Detected (Not Detect.); Shigella sp./EIEC Not Detected (Not Detect.); Vibrio Not Detected (Not Detect.); Vibrio Cholerae Not Detected (Not Detect.); Yersinia enterocolitica Not Detected (Not Detect.)
[2024-04-11 21:38] LABS: Calprotectin, Fecal 880 mcg/g
== END 2024-04-03 22:01 | disposition home or self-care (01) ==
LOC: HO.LNP 22:00
PROVIDERS: Visit Provider Internal Medicine
DX: R19.7 Diarrhea, unspecified (principal); K50.012 Crohn's disease of small intestine with intestinal obstruction; K50.018 Crohn's disease of small intestine with other complication
CPT/HCPCS: 83993; 87493; 87507

== ENCOUNTER 2024-04-10 13:37 | Outpatient (REF) | payer OTHER, SELFPAY ==
--- NOTE | ~2024-04-10 | XR_ITS ---
EXAMINATION: XR ABDOMEN COMPLETE CLINICAL INDICATION: Crohn's, rule out small bowel obstruction, acute abdomen series. COMPARISON: 04/03/2024 radiographs abdomen. 12/08/2018 radiographs chest. TECHNIQUE: 6 view abdominal series obtained including PA view of the chest, 2 AP upright views of the abdomen, and 3 supine views of the abdomen. FINDINGS: PA CHEST: There is no gross pneumothorax. Heart size within normal limits. Lung volumes are low. No gross pleural effusion. There is no evidence of free intraperitoneal air. Possible small pulmonary nodule at the right lung apex versus superimposition of bony and soft tissue structures. Dedicated PA and lateral views of the chest recommended. Alternatively, CT scan of the chest could be obtained. Dextroscoliosis of the thoracolumbar spine with multilevel degenerative changes. Surgical sutures in the right lower quadrant. A moderate amount of gas is scattered throughout the colon. Surgical clips in the right lower quadrant. Multiple small air-fluid levels. No abnormally dilated loops of bowel appreciated. XR/XR acute abdomen series IMPRESSION: 1. Possible small pulmonary nodule at the right lung apex versus superimposition of bony and soft tissue structures. Dedicated PA and lateral views of the chest recommended. Alternatively, CT scan of the chest could be obtained. 2. Small amount of gas throughout nondilated loops of colon. Multiple small air-fluid levels. Stool overlies the rectal region.
== END 2024-04-10 13:38 | disposition home or self-care (01) ==
LOC: HO.XRAY 13:37
PROVIDERS: PCP Internal Medicine; Visit Provider Internal Medicine
DX: K50.012 Crohn's disease of small intestine with intestinal obstruction (principal); Z87.19 Personal history of other diseases of the digestive system
CPT/HCPCS: 74022

== ENCOUNTER 2024-06-05 15:44 | Emergency (ER) | payer OTHER, SELFPAY ==
--- NOTE | ~2024-06-05 | XR_ITS ---
EXAMINATION: XR SHOULDER, RIGHT CLINICAL INFORMATION: Right shoulder pain COMPARISON: Right foot x-ray on 10/25/2016 TECHNIQUE: AP external rotation, Grashey, scapular Y views of the right shoulder. FINDINGS: BONES: Bony structures are intact. There is no focal bone destruction or periosteal reaction seen. JOINTS: Alignment of joints is normal. SOFT TISSUE: Soft tissue is normal. No radiopaque foreign body or abnormal air collection is seen. XR/XR shoulder RT min 2V IMPRESSION: 1. Unchanged Normal x-rays of right shoulder. No fracture or dislocation or signs of osteomyelitis are found.
[2024-06-05 15:47] VITALS: BP 137/83; PULSE 81; RESP 20; TEMP 36.4; O2SAT 95; BMI 41.0
--- NOTE | 2024-06-05 16:54 | ECG_ITS ---
Test Reason : LIGHTHEADED Blood Pressure : / mmHG Vent. Rate : 064 BPM Atrial Rate : 064 BPM P-R Int : 158 ms QRS Dur : 090 ms QT Int : 410 ms P-R-T Axes : 045 023 034 degrees QTc Int : 422 ms Normal sinus rhythm Normal ECG When compared with ECG of 29-JAN-2017 23:13, No significant change was found Referred By: Rolando Armenta Electronically Signed By:Julio Martino
[2024-06-05 16:58] LABS: MANUAL DIFF FLAG NO
[2024-06-05] MEDS: 0.9 % Sodium Chloride 1,000 ML 999 ML IV (17:03)
--- NOTE | 2024-06-05 17:03 | PC.NURSE ---
20gIV placed in the left AC - labs obtained/sent to lab. IVF administered per provider order. pt c/o increase in pain in right shoulder - requesting medication. provider notified/aware at this time.
[2024-06-05 17:08] LABS: Basophils Percent Auto 0.4 % (0-2); Eosinophils Absolute Auto 0.1 X10*3/uL (0.0-0.4); Eosinophils Percent Auto 0.8 % (0-4); Hematocrit 41.2 % (42.0-52.0); Hemoglobin 12.8 g/dl (14.0-18.0); Imm Gran Abs Auto 0.04 X10*3/uL (0.00-0.03); Imm Gran Pct Auto 0.4 % (0.0-0.4); Lymphocytes Absolute Auto 1.4 X10*3/uL (1.2-4.9); Lymphocytes Percent Auto 15.4 % (20-40); Mean Corpuscular HGB Conc 31.1 g/dl (31.0-36.0); Mean Corpuscular Hemoglobin 23.8 pg (27.0-33.0); Mean Corpuscular Volume 76.6 fL (80.0-98.0); Monocytes Absolute Auto 0.6 X10*3/uL (0.1-1.2); Monocytes Percent Auto 7.1 % (2-11); Neutrophils Absolute Auto 6.8 x10*3/uL (2.0-8.3); Neutrophils Percent Auto 75.9 % (45-73); Platelet Count 333 X10*3/uL (160-400); Red Blood Count 5.38 X10*6/uL (4.60-5.80); Red Cell Distribution Width 16.6 % (11.0-16.0)
[2024-06-05 17:12] LABS: Anion Gap 12 (12-20); Blood Urea Nitrogen 13 mg/dL (9-16); Calcium 9.7 mg/dL (8.4-10.2); Carbon Dioxide 28 mmol/L (22-29); Chloride 104 mmol/L (96-108); Estimated Glomerular Filt Rate > 60; Glucose Random 132 mg/dL (60-115); Potassium 4.4 mmol/L (3.3-5.1); Sodium 140 mmol/L (135-145)
[2024-06-05] MEDS: Morphine Sulfate 2 MG/ML CARTRIDGE IVPUSH (17:58)
--- NOTE | 2024-06-05 18:01 | PC.NURSE ---
pt medicated per provider order. effectiveness pending.
[2024-06-05 18:26] VITALS: BP 127/70; PULSE 65; RESP 16; TEMP 36.8; O2SAT 98
[2024-06-05] MEDS: Lidocaine 4 % Patch ADH..PATCH 1 PATCH TRANSDERMA (18:42)
--- NOTE | 2024-06-05 18:43 | PC.NURSE ---
lidocaine patch applied to right shoulder. effectiveness pending.
--- NOTE | 2024-06-05 19:18 | ED_ITS ---
HPI - Extremity Problem General Chief complaint: Extremity Injury, Upper Stated complaint: R shoulder pain, loss of motion Time Seen by Provider: 06/05/24 16:05 Source: patient Mode of arrival: ambulatory History of Present Illness ED Provider: Kathi BURNETTE Narrative: 53-year-old man past medical history of iron-deficiency anemia, Crohn's disease presenting for right shoulder pain. Patient states he has been experiencing right shoulder pain for approximately 1-2 days. 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 He denies trauma and woke up this morning and noticed pain was significantly worse and he is having difficulty lifting his arm. He denies chest pain, shortness of breath, fevers, chills, abdominal pain. MD Complaint: extremity pain Onset (ago): day(s) Related Data Home Medications ?Medication ?Instructions ?Recorded ?Confirmed mesalamine 500 mg capsule,extended 2 cap PO QID 06/05/21 06/05/21 release (Pentasa) Previous Rx's ?Medication ?Instructions ?Recorded acetaminophen 500 mg tablet 1,000 mg (2 x 500 mg) PO QID PRN 09/13/21 (Tylenol Extra Strength) fever or pain #14 tabs cyclobenzaprine 10 mg tablet 10 mg PO Q8H PRN Muscle spasm #14 09/13/21 tabs ibuprofen 800 mg tablet 800 mg PO Q8H PRN pain #14 tabs 09/13/21 lidocaine HCl 4 % topical cream 1 appl topical BID PRN pain #120 09/13/21 (Aspercreme (lidocaine HCl)) grams cyclobenzaprine 10 mg tablet 10 mg PO TID PRN muscle spasm #20 08/13/22 tabs ibuprofen 800 mg tablet 800 mg PO Q8H PRN pain #30 tabs 08/13/22 Allergies Allergy/AdvReac Type Severity Reaction Status Date / Time Penicillins Allergy Severe ANAPHYLAXIS Verified 06/05/24 15:49 Review of Systems 2 Review of Systems: Patient denies head pain, neck pain, chest pain, shortness of breath, abdominal pain, nausea, vomiting, urinary symptoms Yes all other systems are reviewed and are negative [facility] Past Medical History Attestation statement: The following information was validated with the patient. [facility] Narrative: Crohn's disease, iron deficiency anemia Source: old records reviewed Medical History Hx of Crohn's disease Surgical History H/O colonoscopy History of esophagogastroduodenoscopy (EGD) Hx of resection of small bowel Family History Family History Father Abdominal malignancy Paternal Uncle Stroke Paternal Grandmother Stroke Social History Social History Alcohol intake: current Alcohol intake frequency: holidays/special occasions only Patient Tobacco Use Status: Former Tobacco user Cigarette Packs Per Day: 0.5 Advance Directives: No Advance Directives Information Provided: No Do you have a plan to hurt others: No Plan Physical Exam 2 Vital Signs: Vital Signs: Last Vital Signs Temp 98.2 F 06/05/24 18:26 Pulse 65 06/05/24 18:26 Resp 16 06/05/24 18:26 BP 127/70 06/05/24 18:26 Pulse Ox 98 06/05/24 18:26 O2 Del Method Room Air 06/05/24 18:26 BMI result Body Mass Index 41.0 Anterior shoulder tenderness palpation; no external signs of trauma neurovascularly intact Range of motion at shoulder joint limited secondary to pain; full range of motion at elbow and wrist with good name plate stamper strength Medications Administered Discontinued Medications Generic Name Dose Route Start Last Admin Trade Name Freq PRN Reason Stop Dose Admin Sodium Chloride 1,000 mls @ 999 mls/hr 06/05/24 16:45 06/05/24 18:27 Ns IV 06/05/24 17:45 Infused .Q1H1M [place] Infusion Lidocaine 1 patch 06/05/24 18:28 06/05/24 18:42 Lidocaine 4 % Patch Adh..Patch TRANSDERMA 06/05/24 18:29 1 patch ONCE ONE Administration Morphine Sulfate 2 mg 06/05/24 17:48 06/05/24 17:58 Morphine Sulfate 2 Mg/Ml Cartridge IVPUSH 06/05/24 17:49 2 mg ONCE ONE Administration Protocol Medical Decision Making Medical Decision Making MDM Narrative: Given HPI and physical exam I am concerned for the following; rotator cuff injury, adhesive capsulitis While examining patient he began experiencing pain and became lightheaded at which point labs and EKG were ordered Patients EKG did not show any ischemic changes and lab work was within normal limits And treated him with morphine for pain as he says he should not take NSAIDs due to his underlying Crohn's disease On reassessment patient reports prominent symptoms and would like to be discharged home. He states he has Tylenol and Flexeril at home. I recommended not taken Flexeril as his pain does not seem to be related to muscle spasms or muscle tension. I told him he can take Benadryl at night to help fall asleep in addition to the Tylenol I gave him referral for Orthopedics and return precautions Differential Diagnosis Differential Diagnoses: The differential diagnosis associated with the presentation includes Concerns for; Rotator cuff injury, adhesive capsulitis Less likely shoulder dislocation, shoulder separation Lab Data 06/05/24 16:49 06/05/24 16:49 Labs: Lab Results 06/05/24 Range/Units 16:49 WBC 9.0 (4.8-10.8) X10*3/uL RBC 5.38 (4.60-5.80) X10*6/uL Hgb 12.8 L (14.0-18.0) g/dl Hct 41.2 L (42.0-52.0) % MCV 76.6 L (80.0-98.0) fL MCH 23.8 L (27.0-33.0) pg MCHC 31.1 (31.0-36.0) g/dl RDW 16.6 H (11.0-16.0) % Plt Count 333 (160-400) X10*3/uL MPV 11.0 (9.4-12.4) fL Immature Gran % (Auto) 0.4 (0.0-0.4) % Neut % (Auto) 75.9 H (45-73) % Lymph % (Auto) 15.4 L (20-40) % Bowie % (Auto) 7.1 (2-11) % Eos % (Auto) 0.8 (0-4) % Baso % (Auto) 0.4 (0-2) % Lymph # (Auto) 1.4 (1.2-4.9) X10*3/uL Bowie # (Auto) 0.6 (0.1-1.2) X10*3/uL Eos # (Auto) 0.1 (0.0-0.4) X10*3/uL Baso # (Auto) 0.0 (0.0-0.2) X10*3/uL Abs Immat Gran (auto) 0.04 H (0.00-0.03) X10*3/uL Absolute Neuts (auto) 6.8 (2.0-8.3) x10*3/uL Absolute Nucleated RBC 0.000 (0.0-0.012) X10*3/uL Nucleated RBC % (auto) 0.0 (0.0-0.2) /100WBC Sodium 140 (135-145) mmol/L Potassium 4.4 D (3.3-5.1) mmol/L Chloride 104 (96-108) mmol/L Carbon Dioxide 28 (22-29) mmol/L Anion Gap 12 (12-20) BUN 13 (9-16) mg/dL Creatinine 1.10 (0.5-1.4) mg/dL Estim Creat Clear Calc 101.0 Estimated GFR > 60 Random Glucose 132 H (60-115) mg/dL Calcium 9.7 (8.4-10.2) mg/dL Total Creatine Kinase 81 (38-174) U/L Discharge Plan Discharge Clinical Impression: Acute shoulder pain Patient Disposition: Home, Self-Care Instructions: Adhesive Capsulitis (ED), Shoulder Impingement Syndrome (ED) Additional Instructions: Schedule an appointment with an orthopedic physician to be evaluated in the upcoming weeks If you develop any new or worsening symptoms please seek immediate medical attention or return to this emergency department Prescriptions: No Action Pentasa 500 mg capsule, extended release 2 cap PO QID ibuprofen 800 mg tablet 800 mg PO Q8H PRN (Reason: pain) Qty: 30 0RF cyclobenzaprine 10 mg tablet 10 mg PO TID PRN (Reason: muscle spasm) Qty: 20 0RF lidocaine HCl [Aspercreme (lidocaine HCl)] 4 % cream 1 appl topical BID PRN (Reason: pain) Qty: 120 0RF cyclobenzaprine 10 mg tablet 10 mg PO Q8H PRN (Reason: Muscle spasm) Qty: 14 0RF ibuprofen 800 mg tablet 800 mg PO Q8H PRN (Reason: pain) Qty: 14 0RF acetaminophen [Tylenol Extra Strength] 500 mg tablet 1,000 mg PO QID PRN (Reason: fever or pain) Qty: 14 0RF Referrals: Mark Cuellar MD [Physician] - Print Language: Occitan
[2024-06-05 20:36] VITALS: BP 127/70; PULSE 65; RESP 16; TEMP 36.8; O2SAT 98
== END 2024-06-05 20:36 | disposition home or self-care (01) ==
PROVIDERS: Emergency Provider Student in an Organized Health Care Education/Training Program; PCP Internal Medicine
DX: M25.511 Pain in right shoulder (principal); R42 Dizziness and giddiness
CPT/HCPCS: 36415; 73030; 80048; 82550; 85025; 93005; 96361; 96374; 99284; J2270

== ENCOUNTER → 2024-06-05 16:54 | Outpatient (BNV) | payer OTHER, SELFPAY | PROVIDERS: Emergency Provider Student in an Organized Health Care Education/Training Program; PCP Internal Medicine; Visit Provider Internal Medicine Cardiovascular Disease | DX: R42 Dizziness and giddiness (principal) | CPT/HCPCS: 93010 ==

== ENCOUNTER → 2024-07-30 14:53 | Outpatient (RCR) | payer OTHER, SELFPAY ==
[2021-06-05 15:10] VITALS: BP 122/72; PULSE 76; RESP 14; TEMP 36.8; O2SAT 97; BMI 38.5
--- NOTE | 2021-06-05 15:13 | P.CNHO_ITS ---
Subjective - Subjective Chief complaint: Low iron Patient: new to practice Consult date: 06/05/21 Requesting Physician: Dr Mendes Primary Care Provider: Rebekah Tapia MD Medical Summary: Diagnosis: Iron deficiency anemia longstanding Crohn's disease. HPI - Consult Narrative Reason for consult: Iron deficiency anemia Narrative: Abner Tyler is a 50 year old male with history of Crohn's disease since mid 22 so is here for management of persistent iron deficiency anemia. He was recently prescribed oral iron tablets but he is very afraid of being constipated. He only takes it intermittently. He does tend to get constipated and sometimes diarrhea because of his underlying Crohn's disease. He denies hematochezia or melena. He has had recent EGD and colonoscopy, he gets them frequently because of Crohn's disease. His father of stomach cancer in his 50s. His mother was recently diagnosed with stage I breast cancer. Patient denies smoking or drinking alcohol. No complaints of fever, chills, loss of appetite or unexplained weight loss. He has never received iron infusion or required blood transfusion. No family history of anemia. Review of Systems - Constitutional Reports as per HPI, Reports no additional constitutional complaints - Cardiovascular Reports no additional cardiovascular complaints - Respiratory Reports no additional respiratory complaints Oncology Screenings - ECOG Performance Status ECOG Performance Status: 0 PMFSH Medical History: Medical History (Last Updated 02/14/21 @ 11:08 by Ayala Jacobs) Hx of Crohn's disease Family History: Family History (Last Updated 06/05/21 @ 15:16 by Jodi Norris) Father Abdominal malignancy Paternal Uncle Stroke Paternal Grandmother Stroke Surgical History: Surgical History (Last Updated 02/14/21 @ 11:11 by Aylaa Jacobs) H/O colonoscopy History of esophagogastroduodenoscopy (EGD) Hx of resection of small bowel Social History: Social History (Last Updated 06/05/21 @ 15:16 by Jodi Norris) Alcohol History: Alcohol intake: current Alcohol History Details: Alcohol intake frequency: holiday/special occasion Tobacco History: Patient Tobacco Use Status: Former Tobacco user Cigarette Packs Per Day: 0.5 Smoke Quit Date: 1989 Substance Use History: Use of substances other than those prescribed or required for medical reasons : No Home Medications and Allergies Home Medications Medication Instructions Recorded Confirmed Type mesalamine [Pentasa] 2 cap PO QID 06/05/21 06/05/21 History Allergies Allergy/AdvReac Type Severity Reaction Status Date / Time Penicillins Allergy Severe ANAPHYLAXIS Verified 02/14/21 11:17 Physical Exam Vital signs: Vital Signs Temp 98.2 F 06/05/21 15:10 Pulse 76 06/05/21 15:10 Resp 14 06/05/21 15:10 BP 122/72 06/05/21 15:10 Pulse Ox 97 06/05/21 15:10 Intake & Output 06/04/21 06/05/21 06/05/21 18:59 06:59 18:59 Other: Weight 115.1 kg [place] Weight in Grams 134192 Weight 115.1 kg - Constitutional Present: no acute distress - Routine HEENT Exam Head: Present: normal inspection Eye: Present: normal appearance - Routine Neck Exam Present: supple - Routine Chest/Breast/Axilla Exam Axillae: Present: lymphadenopathy - Routine Respiratory Exam Present: CTAB - Routine Cardiovascular Exam Cardiovascular: Present: S1, S2 Hem/Onc Consult Result - Labs CBC & Chem 7: 06/05/21 15:44 Assessment and Plan (1) Iron deficiency anemia Status: Acute 1. This is a 50-year-old male with iron deficiency anemia related to longstanding Crohn's disease. Most probable cause is inadequate oral absorption of iron from dietary sources. He has been tried on oral iron supplementation but he did not have much of a response as he has not been able to take it as prescribed for fear of constipation. No obvious gastrointestinal blood losses, he is up-to-date with EGD and colonoscopy. No family history of anemia. Vitamin B 12 and folate levels are also borderline low. I have asked him to take oral supplementation [id number]. Today I discussed parenteral iron therapy with iron dextran. Possible allergic / infusion reactions were discussed. He is willing to proceed with this. This will be scheduled for him within a week. I thank you very much for allowing me to participate in the care of this patient. Follow-up in 2 months.
[2021-06-05 15:55] LABS: MANUAL DIFF FLAG NO
[2021-06-05 15:58] LABS: Basophils Percent Auto 0.4 % (0-2); Eosinophils Absolute Auto 0.2 X10*3/uL (0.0-0.4); Eosinophils Percent Auto 2.7 % (0-4); Hematocrit 33.2 % (42-52); Hemoglobin 9.3 g/dl (14.0-18.0); Imm Gran Abs Auto 0.03 X10*3/uL (0.00-0.03); Imm Gran Pct Auto 0.4 % (0.0-0.4); Lymphocytes Absolute Auto 1.8 X10*3/uL (1.2-4.9); Lymphocytes Percent Auto 21.6 % (20-40); Mean Corpuscular Hemoglobin 18.6 pg (27.0-33.0); Mean Corpuscular Volume 66.4 fL (80-98); Mean Platelet Volume 10.1 fL (9.4-12.4); Monocytes Absolute Auto 0.6 X10*3/uL (0.1-1.2); Monocytes Percent Auto 7.3 % (2-11); Neutrophils Absolute Auto 5.7 X10*3/uL (2.0-8.3); Neutrophils Percent Auto 67.6 % (45-73); Platelet Count 372 X10*3/uL (160-400); Red Cell Distribution Width 20.4 % (11.0-16.0); White Blood Count 8.4 X10*3/uL (4.8-10.8)
--- NOTE | 2021-06-05 16:23 | MHC.HEMONCMA ---
Patient came in for a consutl, states he is doing well. Clinical summary was reviewed and updated. PAtient did not have labs, and will return in 2 months for a follow up. Patient will be scheduled for iron dextran since he can not tolerate oral iron.
--- NOTE | 2021-06-12 15:26 | MHC.HEMONCMA ---
Left voicemail for patient letting him know the date of his Dextran infusion on 06/23/2021 at 8am. I asked the patient to please call if he can not keep this appt.
--- NOTE | 2021-06-16 10:44 | MHC.HEMONCMA ---
Left second voicemail letting patient know the date and time of his infusion for Dextran on 06/23/2021 at 0800. I asked for him to call back to confirm or to reschedule if needed.
--- NOTE | 2021-06-16 13:11 | MHC.HEMONCMA ---
Patient scheduled for Iron Dextran on 07/03/2021 at 0800.
== END | disposition home or self-care (01) ==
LOC: HO.ONC 06-05 15:00
PROVIDERS: PCP Internal Medicine; Referring Provider Internal Medicine; Visit Provider Internal Medicine
DX: D50.8 Other iron deficiency anemias (principal); K50.90 Crohn's disease, unspecified, without complications
CPT/HCPCS: 36415; 85025; 99213

== ENCOUNTER 2024-09-08 11:08 | Outpatient (REF) | payer OTHER, SELFPAY ==
[2024-09-08 13:46] LABS: Alanine Aminotransferase 30 U/L (0-40); Albumin Level 4.2 g/dL (3.5-5.0); Alkaline Phosphatase 112 U/L (39-117); Anion Gap 11 (12-20); Aspartate Amino Transferase 29 U/L (5-37); Bilirubin Total 0.8 mg/dL (0.0-1.0); Blood Urea Nitrogen 13 mg/dL (9-16); Calcium 9.9 mg/dL (8.4-10.2); Carbon Dioxide 28 mmol/L (22-29); Chloride 107 mmol/L (96-108); Cholesterol 131 mg/dL (<200); Estimated Glomerular Filt Rate > 60; Glucose Random 97 mg/dL (60-115); HDL Cholesterol 39 mg/dL (>40); LDL Cholesterol Calculated 72 mg/dL (<100); Potassium 3.9 mmol/L (3.3-5.1); Sodium 142 mmol/L (135-145); Total Protein 7.8 g/dL (6.5-8.0); Triglycerides 101 mg/dL (<150)
[2024-09-08 14:03] LABS: Estimated Average Glucose 111 mg/dL; Hemoglobin A1C 115.9589 umol/L; Hemoglobin A1c % 5.5 % (<6.0); Total Hemoglobin (HGBA1C) 3139.4546 umol/L
[2024-09-08 14:09] LABS: Creatinine Urine 292.56 mg/dL; Microalbum/Creatinine Ratio Ur 6.1 ug/mg cr (<30)
== END 2024-09-08 11:09 | disposition home or self-care (01) ==
LOC: HO.10HDL 11:08
PROVIDERS: Visit Provider Internal Medicine
DX: E11.9 Type 2 diabetes mellitus without complications (principal); E78.1 Pure hyperglyceridemia; I10 Essential (primary) hypertension
CPT/HCPCS: 36415; 80053; 80061; 82043; 82570; 83036

== ENCOUNTER 2024-12-09 15:15 | Outpatient (REF) | payer OTHER, SELFPAY ==
[2024-12-09 16:07] LABS: Estimated Average Glucose 108 mg/dL; Hemoglobin A1C 118.2931 umol/L; Hemoglobin A1c % 5.4 % (<6.0); Total Hemoglobin (HGBA1C) 3290.5307 umol/L
[2024-12-09 16:14] LABS: Alanine Aminotransferase 13 U/L (0-40); Albumin Level 3.9 g/dL (3.5-5.0); Anion Gap 10 (12-20); Aspartate Amino Transferase 21 U/L (5-37); Bilirubin Total 0.5 mg/dL (0.0-1.0); Blood Urea Nitrogen 13 mg/dL (9-16); Calcium 9.4 mg/dL (8.4-10.2); Carbon Dioxide 28 mmol/L (22-29); Chloride 107 mmol/L (96-108); Estimated Glomerular Filt Rate > 60; Glucose Random 92 mg/dL (60-115); Potassium 4.2 mmol/L (3.3-5.1); Sodium 141 mmol/L (135-145); Total Protein 7.8 g/dL (6.5-8.0)
[2024-12-09 16:18] LABS: Alkaline Phosphatase 116 U/L (39-117)
[2024-12-09 16:27] LABS: Prostate Specific Antigen 1.19 ng/mL (<0.05-4.0)
--- OUTSIDE RECORDS SUMMARY | 2024-12-09 18:04 | XMS_ITS | Data Portability ---
Author Organization [facility] Address [address] [place] [address] Care Team Providers Care Grooming Salon Manager Name Role Phone SELENE GANNON Primary Care Provider [phone] Assessment No assessment recorded. Plan of Treatment Reminders Order Date Submit Date Provider Last Modified By Organization Details Last Modified Time Details Appointments None recorded. Lab None recorded. Referral None recorded. Procedures None recorded. Surgeries None recorded. Imaging XR, chest, 2 view - persistent cough x 7 days , with similar sx for 2 weeks . no crackles , nor wheezing on exam 2022 023 [email or web address] [facility], [address] [place], [address], 10:56:04 Medication Orders benzonatate 200 mg capsule 2022 023 [id number], [address] [place], [address], 10:55:10 albuterol sulfate HFA 90 mcg/actuati on aerosol inhaler 2022 023 [id number], [address] [place], [address], 10:55:10 Patient TargetsNo targets recorded. Patient Instructions Encounter Date Encounter Id Patient Instructions Last Modified By Organization Details Last Modified Time 07/02/2023 [id number] bronchitis: care instructions Not available 07/02/2023 10:55:08 acute bronchitis education Not available 07/02/2023 10:55:08 Reason for Referral None Reported. Results Created Date Observation Date Name Description Value Unit Range Abnormal Flag Note LastModifiedBy Organization Detail LastModifiedTime 07/02/20 23 07/02/2023 XR, chest , 2 view No observ ation record ed. [email or web address] [facility] [address] [place], [address], 07/03/2023 15:25:45 Result Notes None recorded. Problems Name Problem SNOMED Code Status Onset Date Resolution Date Notes Provider Name and Address Organization Details Recorded Time Crohn's disease 74402713 Active 023 Lea Hammad townsend PA - [facility] 07/02/2023 10:10:28 Problem Notes None recorded. Procedures Surgical History None recorded. Imaging Results Imaging Date Name Status LastModified by Organiz ation Details LastModified Time 07/02/2023 XR, chest, 2 view completed [email or web address] [facility] [address] [place], [address], 07/03/2023 15:25:45 Procedure Notes None recorded. Medical Equipment None Reported. Allergies Allergen ID Allergen Name Allergen Category Reaction Reaction Severity Criticality Documentation Date Start Date Code Code System Note Provider Name and Address Organization Details Recorded Time 510809 Medicinal product containin g penicilli n and acting as antibacte rial agent (product) medicatio n anaphylax is Not available Not available 07/02/2023 42522 05 SNOMED Leasukumar townsend PA [facility] 10:09:18 Medications Name Sig Start Date Stop Date Status Note LastModified by Organization Details LastModified Time benzonatate 200 mg capsule Take 1 capsule 3 times a day by oral route as needed for 10 days. 2022 active Not Available Not Available Not Avai lable albuterol sulfate HFA 90 mcg/actuatio n aerosol inhaler Inhale 2 puffs every 4 hours by inhalation route as needed. 2022 active Not Available Not Available Not Avai lable Vitals Date Recorded Body height Body mass index (BMI) Body weight Respiratory rate Oxygen saturation Oxygen saturation in Arterial blood by Pulse oximetry Heart rate Body temperature Systolic blood pressure Diastolic blood pressure Provider Name and Address Organization Details Last Updated DateTime 3 172.72 cm 41.8 kg/m2 674447. 9 g 18 /min 96 % 96 % 79 /min 98.3 [degF] 126 mm[Hg] 69 mm[Hg] Lea Cueva PA - [facility] 3 10:14:14 Social History Question Answer Notes LastModified by Organizat ion Details LastModified Time Tobacco Smoking Status Never Smoker Lea townsend PA - [facility] 07/02/2023 10:12:02 What Is Your Level Of Alcohol Consumption? Occasional Information not available 07/02/2023 How Many Times Per Week Do You Consume Alcohol? Less Than 1 Time Per Week Information not available 07/02/2023 Do You Use Any Illicit Or Recreational Drugs? No Information not available 07/02/2023 Have You Recently Traveled Abroad? No Information not available 07/02/2023 Do You Or Have You Ever Used Any Other Forms Of Tobacco Or Nicotine? No Information not available 07/02/2023 Sex: Unknown Functional Status None recorded. Mental Status None recorded. Family History Relationship Description Onset Age of this Age Resolved Age Notes LastModified by Organization Details LastModified Time Father Primary malignant neoplasm of abdomen emonfette Not available 2022 10:10:46 Medical History No medical history recorded. Immunizations Vaccine Type Date Status Note Provider Nam e and Address Organization Details Recorded Time COVID-19, mRNA, LNP-S, PF, 100 mcg/0.5mL dose or 50 mcg/0.25mL dose 2 completed Lea Cueva null PA - [facility] 07/02/2023 10:09:07 COVID-19, mRNA, LNP-S, PF, 100 mcg/0.5mL dose or 50 mcg/0.25mL dose 1 completed Lea townsend PA - [facility] 07/02/2023 10:09:07 COVID-19 vaccine, vector-nr, rS-Ad26, PF, 0.5 mL 1 completed Lea Monfette null, PA - [facility] 07/02/2023 10:09:07 influenza, unspecified formulation 8 completed Lea Cueva null, PA - [facility] 07/02/2023 10:09:07 Tdap 0 completed Lea Cueva null, PA - [facility] 07/02/2023 10:09:07 Influenza, split virus, trivalent, preservative 0 completed Lea Cueva null, PA - [facility] 07/02/2023 10:09:07 Influenza, split virus, quadrivalent, PF 2 completed Lea Monvince null, PA - [facility] 07/02/2023 10:09:07 Past Encounters Encounter ID Performer Location Encounter Start Date Encounter Closed Date Diagnosis/Indication Diagnosis SNOMED-CT Code Diagnosis ICD10 Code Diagnosis Note [id number] [facility] [address] [place] [address] 07/25/2017 10:15:28 07/25/2017 10:38:18 [id number] [place] [address] [place] [address] 07/02/2023 09:52:44 07/02/2023 10:56:04 Persistent cough 675962606 R05.3 Acute bronchitis 8619778 2 J20.9 Based on your Presentati on, Exam, and Lab Testing you are being diagnosed with Upper respirator y track infection The following are my recommenda tions to help with your symptoms while your body fights this infection: 1. Take Ibuprofen or Tylenol if you do not have any allergies to these medication s. If you take a blood thinner you should not take NSAIDS like Ibuprofen. These medication will help with the inflammati on in your respirator y tract which should help the cough.2. Do not take any decongesta nts at this time because this will dry out that tract too much. If you have a lot of nasal congestion you can try nasal decongesta nts, but I would not take them more than 5 days.3. Use a humidifier or add a cup of water by your bed. Sometimes if our sleeping environmen t is too dry this can lead to cough4. Salt Water Gargles5. Saline nasal spray is helpful.6. Would recommend taking a antihistam ine to help with the congestion .7. Clean Surfaces regularly and try to stay isolated from family members. I would be seen again if you develop any of the following. 1. Cough develops last longer than 3 weeks.2. Develop shortness of breath or wheezing.3 . Severe Headache with vision changes4. Stiff Neck5. Fever does not reduce a few points with Ibuprofen or Tylenol. I would go immediatel y to the Emergency Room if you develop:1. Chest Pain2. Severe Shortness of breath3. Coughing up Blood. I would be seen again if you develop any of the following symptoms.1 . Fever > 101.02. Stiff neck - where you can't turn your neck3. Trouble swallowing your saliva - drooling4. Swelling of a lymph node in your throat that is painful to touch5. Difficulty breathing6 . Severe Headache Thank you for using [facility] today, please feel free to contact our office if you have any questions or concerns. Health Concerns Section Related Observation LastModified by Organization Detai ls LastModified Time None Recorded Concern Status LastModified by Organization Details LastModified Time None Recorded Advance Directives Directive None Recorded Payers Encounter Date Sequence Insurance Name Policy Number Policy Mason Covered Member ID Mason Member ID Guarantor Name 07/02/[address] [place] [address] [id number] [facility] [employer] [employer] [id number] Abner Tyler Notes Date Note Type Note Provider Name and Address Organization Details Recorded Time 3 text/html CoughReported bypatient.source of patient informationInformation obtained from patient; Patient arrived at Urgent Care ambulatory Quality:barking;dry; symptoms worse with lying down Severity:moderate Duration:7 days Timing:gradual Context:family members ill with similar symptoms; Patient denies vaping; non-smoker Modifying Factors:at night Associated Symptoms:no fever; no chills; no chest pain; no heartburn; no nausea; no vomiting; no edema; no agitation; no wheezing; no post nasal dripNotes:patient presents with cough and chest congestion for the past week , has similar symptoms x 2 weeks. has been self treating with nyquil and dayquil with not much improvement. declines covid test , denies any recent exposure Sierra Tinoco NP [address] [place], [address], PA - [facility] 07/02/2023 11:32:14
== END 2024-12-09 15:16 | disposition home or self-care (01) ==
LOC: HO.LAB 15:15
PROVIDERS: PCP Internal Medicine; Visit Provider Internal Medicine
DX: E11.9 Type 2 diabetes mellitus without complications (principal); E78.00 Pure hypercholesterolemia, unspecified; I10 Essential (primary) hypertension; N40.0 Benign prostatic hyperplasia without lower urinary tract symptoms; Z12.5 Encounter for screening for malignant neoplasm of prostate
CPT/HCPCS: 36415; 80053; 83036; 84153

== ENCOUNTER 2025-08-26 10:56 | Outpatient (REF) | payer SELFPAY ==
--- OUTSIDE RECORDS SUMMARY | 2024-07-30 06:00 | XMS_ITS ---
Author Organization [facility] Address [address] [place] [id number] Care Team Providers Care Fats And Oils Loader Name Role Phone Rebekah Tapia Primary Care Provider Unavailab Lamont Moreno [phone] REASON FOR VISIT crohn's Encounters Encounter Location Date Provider Diagnosis [facility] [address] [place] [phone] 07/30/2024 Lamont Mendes Plan Of Treatment No Information Progress Notes * NOLBERTO LACEYDOB:[birth year] (55 yo M)Acc No.[id number]:07/30/2024 Progress Notes Patient: NOLBERTO SOW Provider: Rebecca Mendes MD :1970 A ge:54 Y S ex:Male Date:07/30/2024 Address:[address] [place], [place] [id number] Pcp:Rebekah Tapia Subjective: * Chief Complaints: * 1 . Crohn's. * Medical History: Objective: * Vitals: Assessment: Plan: * Treatment: * * The named appointment provid er may or may not be the originator of this progress note, and it is not deemed complete until electronically signed by the appointment provider. Sign off status: Pending * Provider: Rebecca Mendes MD Date: 0 07/30/2024 Generated for Printi ng/Faxing/eTransmitting on: 1 12:51 PM EDT
--- OUTSIDE RECORDS SUMMARY | 2024-10-07 11:00 | XMS_ITS ---
Author Organization [facility] Address [address] [place] [phone] Care Team Providers Care Manager Wholesale Name Role Phone Rebekah Tapia Primary Care Provider Unavailab Lamont Moreno [phone] REASON FOR VISIT Patient presents today for crohn's Encounters Encounter Location Date Provider Diagnosis [facility] [address] [place] [phone] 10/07/2024 Lamont Mendes Plan Of Treatment No Information Progress Notes * NOLBERTO LACEYDOB:[birth year] (55 yo M)Acc No.[id number]:10/07/2024 Progress Notes Patient: NOLBERTO SOW Provider: Rebecca Mendes MD :1970 A ge:54 Y S ex:Male Date:10/07/2024 Address:[address] [place], [place] [id number] Pcp:Rebekah Tapia Subjective: * Chief Complaints: * 1 . Patient presents today for crohn's. * Medical History: Objective: * Vitals: Assessment: Plan: * Treatment: * * The named appointment provid er may or may not be the originator of this progress note, and it is not deemed complete until electronically signed by the appointment provider. Sign off status: Pending * Provider: Rebecca Mendes MD Date: 1 12/07/2023 Generated for Printi ng/Faxing/eTransmitting on: 12:52 PM EDT
--- OUTSIDE RECORDS SUMMARY | 2025-02-04 05:20 | XMS_ITS ---
Author Organization [facility] Address [address] [place] [address] Care Team Providers Care Professor Of English Name Role Phone Rebekah Tapia Primary Care Provider Unavailab Lamont Moreno [phone] REASON FOR VISIT Patient presents today for crohns Encounters Encounter Location Date Provider Diagnosis [facility] [address] [place] [address] 02/04/2025 Lamont Mendes Plan Of Treatment No Information Progress Notes * NOLBERTO LACEYDOB:[birth year] (55 yo M)Acc No.[id number]:02/04/2025 Progress Notes Patient: NOLBERTO SOW Provider: Rebecca Mendes MD :1970 A ge:54 Y S ex:Male Date:02/04/2025 Address:[address] [place], [place] [id number] Pcp:Rebekah Tapia Subjective: * Chief Complaints: * 1 . Patient presents today for crohns. * Medical History: Objective: * Vitals: Assessment: Plan: * Treatment: * * The named appointment provid er may or may not be the originator of this progress note, and it is not deemed complete until electronically signed by the appointment provider. Sign off status: Pending * Provider: Rebecca Mendes MD Date: 0 02/04/2025 Generated for Printi ng/Faxing/eTransmitting on: 1 12:51 PM EDT
--- OUTSIDE RECORDS SUMMARY | 2025-06-01 07:10 | XMS_ITS ---
Author Organization [facility] Address [address] [place] [address] Care Team Providers Care Healthcare Translator Name Role Phone Rebekah Tapia Primary Care Provider Unavailab Lamont Moreno [phone] REASON FOR VISIT Patient presents today for crohn's disease Encounters Encounter Location Date Provider Diagnosis [facility] [address] [place] [address] 06/01/2025 Lamont Mendes Plan Of Treatment No Information Progress Notes * NOLBERTO LACEYDOB:[birth year] (55 yo M)Acc No.[id number]:06/01/2025 Progress Notes Patient: NOLBERTO SOW Provider: Rebecca Mendes MD :1970 A ge:54 Y S ex:Male Date:06/01/2025 Address:[address] [place] [address], [facility] Pcp:Rebekah Tapia Subjective: * Chief Complaints: * 1 . Patient presents today for crohn's disease. * Medical History: Objective: * Vitals: Assessment: Plan: * Treatment: * * The named appointment provid er may or may not be the originator of this progress note, and it is not deemed complete until electronically signed by the appointment provider. Sign off status: Pending * Provider: Rebecca Mendes MD Date: 0 06/01/2025 Generated for Gissellei marcela/Isidra/eTransmitting on: 1 12:52 PM EDT
[2025-08-26 12:12] LABS: Hemoglobin A1C 126.4041 umol/L; Total Hemoglobin (HGBA1C) 3360.4987 umol/L
[2025-08-26 12:24] LABS: Microalbum/Creatinine Ratio Ur 15.0 ug/mg cr (<30)
[2025-08-26 12:30] LABS: Alanine Aminotransferase 21 U/L (0-40); Albumin Level 4.3 g/dL (3.5-5.0); Alkaline Phosphatase 113 U/L (39-117); Anion Gap 8 (12-20); Aspartate Amino Transferase 28 U/L (5-37); Blood Urea Nitrogen 17 mg/dL (9-16); Calcium 9.2 mg/dL (8.4-10.2); Carbon Dioxide 29 mmol/L (22-29); Chloride 107 mmol/L (96-108); Cholesterol 167 mg/dL (<200); Estimated Glomerular Filt Rate > 60; HDL Cholesterol 33 mg/dL (>40); Potassium 4.2 mmol/L (3.3-5.1); Sodium 140 mmol/L (135-145); Total Protein 7.7 g/dL (6.5-8.0); Triglycerides 207 mg/dL (<150)
--- OUTSIDE RECORDS SUMMARY | 2025-08-26 12:51 | XMS_ITS | Patient Health Record ---
Author Organization [facility] Address [address] [place] [address] Care Team Providers Care Singing Telegram Performer Name Role Phone Rebekah Tapia Primary Care Provider UnavailLamont Hair Unavailable [phone] Allergies Allergen (clinical drug ingredient) Drug/Non Drug Allergy documented on EMR Reaction Allergy Type Onset Date Status Penicillin Unknown Drug Allergy Active Reason For Referral No Information Medications Medication SIG (Take, Route, Fr equency, Duration) Notes Start Date End Date Status Janumet 50-1000 MG TAKE 1 TABLET ORALLY 2 TIMES A DAY X 7 DAYS FOR DIABETES Oral for 90 Days Active Janumet 50-1000 MG Oral for 90 Days Active LORazepam 0.5 MG Take 1 pill 30-60 mi nutes before the MRI. You can repeat immediately before the MRI as needed for ongoing anxiety Orally Once a day for 1 days 06/22/2024 Unk nown Immunizations Vaccine Route Administration Date Status Comme nts Influenza Unknown 09/07/2020 Administered Influenza Unknown 06/05/2024 Refused Social History Alcohol Screen Question Answer Notes Did you have a drink containing alcohol in the p ast year? No Points 0 Interpretation Negative Section Notes: Nonsmoker; no sig alcohol Nonsmoker; no sig alcohol Nonsmoker; no sig alcohol Nonsmoker; no sig alcohol Nonsmoker; no sig alcohol Nonsmoker; no sig alcohol Nonsmoker; no sig alcohol Nonsmoker; no sig alcohol Problems Problem Type SNOMED Code ICD Code Onset Dates Problem Status W/U Status Risk Notes Problem 45472547 Crohn's disease of small intestine with unspecified complications (K50.019) Active confirmed Problem Iron deficiency anemia (69992735) Iron deficiency anemia (D50.9) Active confirmed Problem 721795405 Iron deficiency anemia due to chronic blood loss (D50.0) Active confirmed Problem 58406878 Crohns disease o f small intestine with complication (K50.019) Active confirmed Problem Intestinal obstruction due to Crohn's disease of small intestine (disorder) (07413025537875 03) Crohn''s disease of small intestine with intestinal obstruction (K50.012) Active confirmed Problem Intestinal obstruction due to Crohn's disease of small and large intestine (disorder) (02948706046265 04) Crohn''s disease of both small and large intestine with intestinal obstruction (K50.812) Active confirmed Problem Crohn's disease of small intestine (04247055) Crohn''s disease of small intestine with other complication (K50.018) Active confirmed Problem Acute diarrhea (865475336) Acute diarrhea (R19.7) Active confirmed Problem History of small bowel obstruction (30514883934819 9106) History of small bowel obstruction (Z87.19) Active confirmed Problem Intestinal obstruction (85823082) SBO (small bowel obstruction) (K56.609) Active confirmed Encounters Encounter Location Date Provider Diagnosis [facility] [address] [place] [address] 10/01/2024 Lamont Mendes [facility] [address] [place] [address] 02/02/2025 Lamont Mendes [facility] [address] [place] [address] 06/01/2025 Lamont Mendes Plan Of Treatment Pending Test Test Name Order Date CHEM 7 PROFILE 04/02/2024 LIVER PROFILE 02/08/2021 LIVER PROFILE 04/02/2024 LIVER PROFILE 08/01/2023 IRON + IBC (FE) 02/22/2021 IRON + IBC (FE) 02/08/2021 IRON + IBC (FE) 12/06/2021 IRON + IBC (FE) 04/13/2021 IRON + IBC (FE) 09/01/2021 IRON + IBC (FE) 08/01/2023 FERRITIN 08/06/2014 FERRITIN 02/22/2021 FERRITIN 02/08/2021 FERRITIN 04/13/2021 CRP 04/13/2021 CRP 04/02/2024 CRP 02/08/2021 VITAMIN B12 AND FOLATE 03/25/2014 VITAMIN B12 AND FOLATE 08/06/2014 VITAMIN B12 AND FOLATE 02/08/2021 CBC w DIFF 09/01/2021 CBC w DIFF 08/01/2023 CBC w DIFF 02/08/2021 CBC w DIFF 04/13/2021 CBC w DIFF 02/22/2021 CBC w DIFF 12/06/2021 CBC w DIFF 04/02/2024 CBC w DIFF 08/06/2014 SED RATE (ESR) 04/02/2024 SED RATE (ESR) 02/08/2021 SED RATE (ESR) 04/13/2021 XR ABD UPRIGHT AND CHEST 04/02/2024 XR ABD UPRIGHT AND CHEST 04/02/2024 XR GI SMALL BOWEL SERIES 02/26/2018 C DIFFICILE RFLX PCR 04/02/2024 Complete Blood Count Auto Diff Ferritin 09/01/2021 Ferritin 08/01/2023 Ferritin 12/06/2021 Vitamin B12 and Folate 08/01/2023 CT enterography 07/02/2024 XR abdomen min 2V 04/02/2024 MR Enterography 06/05/2024 Future Test Test Name Order Date UPPER GI ENDOSCOPY 08/06/2014 UPPER GI ENDOSCOPY 02/08/2021 COLONOSCOPY 02/08/2021 Insurance Providers Payer Name Payer Address Payer Phone Subscriber Number Group Number Insured Name Patient Relationship to Insured Coverage Start Date Coverage End Date [facility] [address] [place] [address] [phone] [id number] NOLBERTO LACEY Self - patient is the insured Medical (General) History Medical History History ICD Code Denies DC,DM,CVA,Lung disease,renal dise ase Crohn's disease--diagnosed i n 1995 when he presented with a perforation in the TI--colonoscopy in 1997 revealed Crohn's at the anastomosis---at [facility] in approx. 2011 for 3 weeks--was seeing Dr. Hooker--had been on Pentasa, 6-MP, prednisone--stopped in 2012--stays on a low residue diet--has never been on Remicade. His last colonoscopy was in 2009--colon and biopsies were normal--there was inflammation at the anastomosis[facility] Ad[facility] to [facility] [place] fo r a flareup of the SI Crohn's disease---started on [facility] end of February, EGD in 01/2018--? UGI bleed at [facility]alberto l except for minimal duodenitis Kidney stones Iron deficiency anemia--EGD in 01/2021 with a hiatal hernia, mild gastritis, and benign gastric polyp--duodenal biopsies were negative for celiac disease, gastric biopsies were negative for H. pylori, and there was no Hollingsworth's esophagus. His colonoscopy at that time revealed a normal-appearing colon, albeit with a limited prep, but active Crohn's disease at the anastomosis and distal small bowel Surgical History Surgery Date(Month/Year) Small bowel bowel resection for a perforation in relation to Crohn's disease with an ileocolic anastomosis 1995
== END 2025-08-26 10:57 | disposition home or self-care (01) ==
LOC: HO.10HDL 10:56
PROVIDERS: Visit Provider Internal Medicine
DX: Z00.00 Encounter for general adult medical examination without abnormal findings (principal); I10 Essential (primary) hypertension; E78.00 Pure hypercholesterolemia, unspecified; E11.9 Type 2 diabetes mellitus without complications; M67.814 Other specified disorders of tendon, left shoulder
CPT/HCPCS: 36415; 80053; 80061; 82043; 82570; 83036